=== PATIENT | female | born 2000 | race Hispanic/Latino ===

== ENCOUNTER 2022-07-13 15:37 | Emergency (ER) | payer MEDICAID, OTHER ==
[~2022-07-13] VITALS: Ht 160 cm; Wt 70.3 kg
[2022-07-13 17:15] VITALS: BP 118/81
[2022-07-13 18:37] LABS: APPEARANCE,URINE CLOUDY (CLEAR); BILIRUBIN,URINE NEGATIVE (NEGATIVE); COLOR,URINE YELLOW (YELLOW); GLUCOSE, URINE (UA) NEGATIVE (NEGATIVE); KETONES,URINE >=80 mg/dL (NEGATIVE); LEUKOCYTE ESTERASE ,URINE 500 Leu/uL (NEGATIVE); NITRATE,URINE NEGATIVE (NEGATIVE); PH,URINE 6.5 (5.0-8.0); PROTEIN,URINE 70 mg/dL (NEGATIVE)
[2022-07-13 18:43] LABS: BACTERIA,URINE RARE /HPF (None Seen); MUCUS,URINE MANY LPF (None Seen); SQUAMOUS EPITHELIAL CELL,UR MANY /HPF (0-2); WBC,URINE 51-100 /HPF (0-1)
[2022-07-13 18:59] LABS: HCG,QUALITATIVE URINE NEGATIVE (NEGATIVE)
[2022-07-13] MEDS ORDERED: AMOX1TAB16 PO (19:08)
== END 2022-07-13 19:15 | disposition home or self-care (01) ==
LOC: EDH 15:37
DX: N39.0 Urinary tract infection, site not specified (principal); Z20.822 Contact with and (suspected) exposure to COVID-19
CPT/HCPCS: 99283; 87635; 87088; 87880; 87804 ×2; 81001; 81025; C9803

== ENCOUNTER 2022-10-22 15:10 | Emergency (ER) | payer OTHER, MEDICAID ==
[~2022-10-22] VITALS: Ht 162.6 cm; Wt 68.0 kg
[~2022-10-22 15:10] MED LIST: AMOX1TAB16 PO
[2022-10-22] MEDS ORDERED: ACETAMINOPHEN 500 MG TABLET PO ONE (15:30)
[2022-10-22 17:03] VITALS: BP 130/68
== END 2022-10-22 17:20 | disposition home or self-care (01) ==
LOC: EDH 15:10
DX: S93.491A Sprain of other ligament of right ankle, initial encounter (principal); X58.XXXA Exposure to other specified factors, initial encounter; Y93.89 Activity, other specified; Y92.89 Other specified places as the place of occurrence of the external cause; Y99.8 Other external cause status
CPT/HCPCS: 73610

== ENCOUNTER 2023-10-04 08:45 | Emergency (ER) | payer MEDICAID, OTHER ==
[~2023-10-04] VITALS: Ht 162.6 cm; Wt 68.9 kg
[2023-10-04] MEDS: ACETAMINOPHEN 325 MG TAB PO ONE (09:17)
[2023-10-04] MEDS: MAG/ALUM/SIMETH 30 ML UDCUP PO ONE (09:17)
[2023-10-04] MEDS: LACTATED RINGERS 1000ML 1,000 ML IV ONE (09:17)
[2023-10-04 09:21] LABS: BASOPHILS # (AUTO) 0.04 K/uL (0.00-0.20); BASOPHILS % (AUTO) 0.7 % (0.0-5.0); EOSINOPHILS # (AUTO) 0.19 K/uL (0.00-0.70); EOSINOPHILS % (AUTO) 3.1 % (0.0-8.0); HEMATOCRIT 39.6 % (36-48); IMMATURE GRANULOCYTE ABSOLUTE 0.01 K/uL (0-1); LYMPHOCYTES # (AUTO) 2.3 K/uL (1.0-4.8); LYMPHOCYTES % (AUTO) 37.1 % (21.0-51.0); MEAN CORPUSCULAR HEMOGLOBIN 23.1 pg (27.0-33.0); MEAN CORPUSCULAR HGB CONC 31.8 g/dL (32.0-36.0); MEAN CORPUSCULAR VOLUME 72.5 fL (79-99); MONOCYTES # (AUTO) 0.4 K/uL (0.1-1.0); MONOCYTES % (AUTO) 6.9 % (3.0-13.0); NEUTROPHILS # (AUTO) 3.2 K/uL (1.8-7.7); PLATELET COUNT (AUTO) 277 K/uL (130-400); RED BLOOD CELL COUNT(AUTO) 5.46 MIL/uL (4.00-5.50); RED CELL DISTRIBUTION WIDTH 14.6 % (11.0-15.5); WHITE BLOOD COUNT (AUTO) 6.1 K/uL (4.8-10.8)
[2023-10-04 09:22] VITALS: BP 130/77; PULSE 67; RESP 18; O2SAT 99
[2023-10-04 09:24] LABS: APPEARANCE,URINE CLEAR (CLEAR); BILIRUBIN,URINE NEGATIVE (NEGATIVE); COLOR,URINE LIGHT-YELLOW (YELLOW); GLUCOSE, URINE (UA) NEGATIVE (NEGATIVE); KETONES,URINE NEGATIVE (NEGATIVE); LEUKOCYTE ESTERASE ,URINE NEGATIVE Leu/uL (NEGATIVE); NITRATE,URINE NEGATIVE (NEGATIVE); OCCULT BLOOD,URINE NEGATIVE (NEGATIVE); PROTEIN,URINE NEGATIVE (NEGATIVE); UROBILINOGEN,URINE 0.2 mg/dL (0.2-1.0)
[2023-10-04 09:26] LABS: ADD UA MICROSCOPIC NO; HCG,QUALITATIVE URINE NEGATIVE (NEGATIVE)
[2023-10-04 09:31] LABS: CREATININE 0.7 mg/dL (0.5-1.0); POTASSIUM 3.6 mmol/L (3.5-5.1)
[2023-10-04 09:36] LABS: BILIRUBIN,TOTAL 0.5 mg/dL (0.2-1.0); TOTAL PROTEIN, SERUM 8.4 g/dL (6.0-8.3)
[2023-10-04] MEDS ORDERED: IOHEXOL 350 MG/ML 100ML INFUS..BTL IV ONE (11:23)
[2023-10-04] MEDS ORDERED: PANT40TA55 PO (12:28)
== END 2023-10-04 12:34 | disposition home or self-care (01) ==
LOC: EDH 08:45
DX: K29.70 Gastritis, unspecified, without bleeding (principal)
CPT/HCPCS: 99285; 74177; 96360; 80053; 85025; 81003; 81025; 36415; J7120; Q9967

== ENCOUNTER 2025-02-10 19:34 | Emergency (ER) | payer MEDICAID, OTHER ==
[~2025-02-10] VITALS: Ht 162.6 cm; Wt 70.3 kg
[~2025-02-10 19:34] MED LIST changes: +PANT40TA55 PO
--- NOTE | 2025-02-10 20:22 | NUR ---
ICE PACK GIVEN TO PATIENT.
--- NOTE | 2025-02-10 21:35 | HMCIMG ---
EXAM: CR right foot, 3 View. CLINICAL HISTORY: pain, injury COMPARISON: None provided. FINDINGS: BONES: No acute fracture or aggressive appearing osseous lesion. JOINTS: The joint spaces appear within normal limits. No dislocation. SOFT TISSUES: The soft tissues are unremarkable. IMPRESSION: No acute osseous abnormality. /[place]
--- NOTE | 2025-02-10 21:36 | HMCIMG ---
EXAM: CR right ankle, 3 View. CLINICAL HISTORY: pain, injury COMPARISON: None provided. FINDINGS: BONES: No acute fracture or aggressive appearing osseous lesion. JOINTS: The joint spaces appear within normal limits. No dislocation. No radiographic evidence of a joint effusion. SOFT TISSUES: The soft tissues are unremarkable. IMPRESSION: No acute osseous abnormality. /[place]
[2025-02-10] MEDS ORDERED: KETO10 PO (21:39)
--- NOTE | 2025-02-10 21:39 | ERN ---
General Chief Complaint: Mechanical Fall Stated Complaint: C/O PAIN TO ANKLE Time Seen by MD: 20:35 History of Present Illness Initial Comments 24-year-old female healthy who was walking out of work today when she fell turning her right ankle medially and then and then spraining it badly. Distal circulation neurovascular intact. Allergies: Coded Allergies: No Known Drug Allergies (Unverified Allergy, Unknown, 07/13/22) Home Meds Active Scripts Pantoprazole Sodium (Protonix) 40 Mg Ectab, 40 MG PO DAILY for 30 Days, #30 TAB.EC Prov:JOSÉ LUIS MCKINNON MD 10/04/23 Amoxicillin/Potassium Clav (Amox Tr-K Clv 875-125 mg Tab) 1 Each Tablet, 1 EACH PO BID for 10 Days, #20 TAB Prov:RACQUEL TOTH 07/13/22 Past Medical History Past Medical History: No Pertinent History Past Surgical History: None Female( History) LMP: Dec 27, 2024 : 1 Para: 1 Aborts: 0 ROS Dictation Review of systems negative other than the twisted Physical Exam Extremities Comment Right ankle is swollen laterally there was no discoloration medially or laterally. Good capillary refill distally and neurovascularly intact distally. MDM Plain films of the right ankle and foot show no fractures or dislocations. ED Course Orders Procedure Category Date Status Time Ankle Comp 3vws Rt RAD 02/10/25 Taken 19:55 Foot Comp 3+Vws Rt RAD 02/10/25 Taken 19:55 Vital Signs Date Time Temp Pulse Resp B/P (MAP) Pulse Ox O2 Delivery O2 Flow Rate FiO2 02/10/25 20:18 98.4 76 18 121/66 99 Room Air* 0 21 02/10/25 19:42 98.4 78 18 115/81 97 Room Air DX & DISP Disposition: Discharge Departure Impression: Primary Impression: Ankle sprain Condition: Stable Scripts Ketorolac Tromethamine (Toradol) 10 Mg Tab 1 TAB PO Q6HPRN PRN for pain for 5 Days, #20 TAB 0 Refills Prov: KEMAR WALKER MD 02/10/25 Additional Instructions: We will discharge you with a brace and crutches if necessary. Pain can be controlled with a prescription for Toradol as well as ibuprofen and Tylenol. Please follow-up with her primary care physician if the swelling and tenderness to not recede within the next several days. In the meantime treat the right foot sprain with elevation and ice packs to keep it cool. Do not place ice directly against the skin. Please return if you feel the distal circulation to your toes has been compromised. Referrals: SELF,REFERRAL (PCP) KEMAR WALKER MD Feb 10, 2025 21:39
[2025-02-10 21:51] VITALS: BP 120/65; PULSE 75; RESP 18; TEMP 98.4; O2SAT 98
--- NOTE | 2025-02-10 21:55 | NUR ---
RIGHT BOOT IN PLACED PER DR ROSS
== END 2025-02-10 21:56 | disposition home or self-care (01) ==
LOC: EDH 19:34
DX: S93.401A Sprain of unspecified ligament of right ankle, initial encounter (principal); Z79.899 Other long term (current) drug therapy; W18.39XA Other fall on same level, initial encounter; Y92.89 Other specified places as the place of occurrence of the external cause; Y93.01 Activity, walking, marching and hiking; Y99.8 Other external cause status
CPT/HCPCS: 73610; 73630; 99284